=== PATIENT | female | born 1930 | race Caucasian/White ===

== ENCOUNTER 2020-01-14 22:28 | Emergency (ER) | payer MEDICARE, OTHER ==
[~2020-01-14] VITALS: Ht 162.6 cm; Wt 79.9 kg
[2020-01-14] MEDS ORDERED: IOHEXOL 300 MG/ML 75 ML VIAL. IV ONE (23:45)
[2020-01-14] MEDS ORDERED: CONTRAST GIVEN. MC PRN (23:45)
[2020-01-14] MEDS ORDERED: IOHEXOL 240 MG/ML 50ML VIAL. PO ONE (23:45)
[2020-01-14 23:54] LABS: BASO % 0 % (0-3); EOS # 0.3 x10^3/uL (0.0-0.7); EOS % 3 % (0-3); HEMATOCRIT 31.2 % (36.0-47.0); HEMOGLOBIN 10.1 g/dL (12.0-15.5); LYMPH # 2.1 x10^3/uL (1.0-4.8); LYMPH % 23 % (24-48); MEAN CORPUSCULAR HEMOGLOBIN 30 pg (25-35); MEAN CORPUSCULAR HGB CONC 32 g/dL (31-37); MEAN CORPUSCULAR VOLUME 91 fL (79-100); MONO # 1.2 x10^3/uL (0.0-1.1); MONO % 13 % (0-9); NEUT # 5.7 x10^3uL (1.8-7.7); NEUT % 61 % (31-73); PLATELET COUNT 256 x10^3/uL (140-400); RED BLOOD COUNT 3.41 x10^6/uL (3.50-5.40); RED CELL DISTRIBUTION WIDTH 14.4 % (11.5-14.5); WHITE BLOOD COUNT 9.3 x10^3/uL (4.0-11.0)
[2020-01-15 00:01] LABS: CALCIUM 8.9 mg/dL (8.5-10.1); CREATININE 1.6 mg/dL (0.6-1.0); GFR 30.4; POTASSIUM 3.5 mmol/L (3.5-5.1)
[2020-01-15 00:08] LABS: ALBUMIN 3.1 g/dL (3.4-5.0); ALBUMIN/GLOBULIN RATIO 0.7 (1.0-1.7); TOTAL BILIRUBIN 0.4 mg/dL (0.2-1.0); TOTAL PROTEIN 7.5 g/dL (6.4-8.2)
--- NOTE | 2020-01-15 02:13 | RAD ---
INDICATION: Reason: abd pain, diarrhea, OMNI 240, 30ml / Spl. Instructions: / History: . COMPARISON: None. TECHNIQUE: Axial CT images obtained through the abdomen and pelvis with contrast. One or more of the following individualized dose reduction techniques were utilized for this examination: 1. Automated exposure control; 2. Adjustment of the mA and/or kV according to patient size; 3. Use of iterative reconstruction technique. FINDINGS: Severe calcific atherosclerosis. Surgical clips in the gallbladder fossa. No perihepatic hemorrhage. No definite peripancreatic fluid collection. Spleen unremarkable. Mild thickening of the adrenal glands. No left-sided hydronephrosis. Urinary bladder is partially distended. There is some mild prominence the wall and indistinctness of adjacent fat. Mildly prominent right extrarenal pelvis. Wall thickening of the sigmoid colon with adjacent edema to the fat with diverticulosis. Small fat-containing umbilical hernia. 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 Osseous demineralization. IMPRESSION: * Wall thickening of the sigmoid colon with adjacent edema to the fat which can be seen with sigmoid diverticulitis. * There is some wall thickening of bladder. Would correlate with symptoms since a secondary cystitis could be present if the patient is having urinary tract symptoms. 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
[2020-01-15] MEDS ORDERED: AMOX1TAB61 PO (02:26)
--- NOTE | 2020-01-15 02:26 | PHYS DOC ---
Past History Past Medical History: Diabetes, Hypertension Past Surgical History: No Surgical History Alcohol Use: None Adult General Chief Complaint Chief Complaint: DIARRHEA HPI HPI Patient is an 89-year-old female presents to the emergency room complaining of abdominal cramping and diarrhea that started yesterday. She states she is having multiple episodes of diarrhea a day. She states it is watery in nature. She is never had anything like this before. She does not have any significant abdominal pain. She is not had any kind of fever. She denies any dizziness or difficulty walking. She would like to go home tonight. Her family made her come in to get checked out as her diarrhea is not controlled. Review of Systems Review of Systems General: Denies fever, chills, sweats, fatigue Eyes: Denies drainage, blurred vision, eye redness HENT: Denies rhinorrhea, sore throat, earache Respiratory: Denies cough, shortness of breath, wheezing Cardiac: Denies edema, palpitations, chest pain GI: Denies abdominal pain, Nausea, vomiting reports diarrhea MSK: Denies back pain, neck pain Skin: Denies rash, jaundice Neuro: Denies headache, dizziness Psychiatric: Denies SI/HI Current Medications Current Medications Current Medications Medications (Trade) Dose Ordered Sig/Candelario Start Time Stop Time Status Last Admin Dose Admin Info (Do NOT chart on this entry -- for MONITORING) 1 each PRN DAILY PRN 01/14/20 23:45 01/16/20 23:44 Iohexol (Omnipaque 240 Mg/ml) 30 ml 1X ONCE 01/14/20 23:45 01/14/20 23:46 DC 01/15/20 01:02 30 ML Iohexol (Omnipaque 300 Mg/ml) 75 ml 1X ONCE 01/14/20 23:45 01/14/20 23:46 DC Allergies Allergies Allergies Coded Allergies Type Severity Reaction Last Updated Verified No Known Drug Allergies 01/14/20 No Physical Exam Physical Exam General: Awake, alert, NAD. Well Nourished, well hydrated. Cooperative HEENT: Atraumatic, EOMI, PERRL, airway patent, moist oral mucosa Neck: Supple, trachea midline Respiratory: CTA bilaterally, normal effort, no wheezing/crackles CV: RRR, no murmur, cap refill <2 GI: Soft, nondistended, nontender, no masses MSK: No obvious deformities Skin: Warm, dry, intact Neuro: A&O x3, speech NL, sensory and motor grossly intact, no focal deficits Psych: Normal affect, normal mood, not suicidal or homicidal Current Patient Data Vital Signs Vital Signs Date Time Temp Pulse Resp B/P (MAP) Pulse Ox O2 Delivery O2 Flow Rate FiO2 01/14/20 22:28 98.7 86 18 144/81 (102) 100 Room Air Lab Results Laboratory Tests Test 01/14/20 23:30 White Blood Count 9.3 x10^3/uL (4.0-11.0) Red Blood Count 3.41 x10^6/uL (3.50-5.40) L Hemoglobin 10.1 g/dL (12.0-15.5) L Hematocrit 31.2 % (36.0-47.0) L Mean Corpuscular Volume 91 fL (79-100) Mean Corpuscular Hemoglobin 30 pg (25-35) Mean Corpuscular Hemoglobin Concent 32 g/dL (31-37) Red Cell Distribution Width 14.4 % (11.5-14.5) Platelet Count 256 x10^3/uL (140-400) Neutrophils (%) (Auto) 61 % (31-73) Lymphocytes (%) (Auto) 23 % (24-48) L Monocytes (%) (Auto) 13 % (0-9) H Eosinophils (%) (Auto) 3 % (0-3) Basophils (%) (Auto) 0 % (0-3) Neutrophils # (Auto) 5.7 x10^3uL (1.8-7.7) Lymphocytes # (Auto) 2.1 x10^3/uL (1.0-4.8) Monocytes # (Auto) 1.2 x10^3/uL (0.0-1.1) H Eosinophils # (Auto) 0.3 x10^3/uL (0.0-0.7) Basophils # (Auto) 0.0 x10^3/uL (0.0-0.2) Sodium Level 137 mmol/L (136-145) Potassium Level 3.5 mmol/L (3.5-5.1) Chloride Level 102 mmol/L (98-107) Carbon Dioxide Level 24 mmol/L (21-32) Anion Gap 11 (6-14) Blood Urea Nitrogen 16 mg/dL (7-20) Creatinine 1.6 mg/dL (0.6-1.0) H Estimated GFR (Cockcroft-Gault) 30.4 BUN/Creatinine Ratio 10 (6-20) Glucose Level 160 mg/dL (70-99) H Calcium Level 8.9 mg/dL (8.5-10.1) Total Bilirubin 0.4 mg/dL (0.2-1.0) Aspartate Amino Transferase (AST) 11 U/L (15-37) L Alanine Aminotransferase (ALT) 15 U/L (14-59) Alkaline Phosphatase 81 U/L (46-116) Total Protein 7.5 g/dL (6.4-8.2) Albumin 3.1 g/dL (3.4-5.0) L Albumin/Globulin Ratio 0.7 (1.0-1.7) L EKG EKG [] Radiology/Procedures Radiology/Procedures [] Heart Score Risk Factors: Risk Factors: DM, Current or recent (<one month) smoker, HTN, HLP, family history of CAD, obesity. Risk Scores: Risk Factors: DM, Current or recent (<one month) smoker, HTN, HLP, family history of CAD, obesity. Course & Med Decision Making Course & Med Decision Making Pertinent Labs and Imaging studies reviewed. (See chart for details) Patient is a 89 year-old female who presents to the Emergency Room complaining of abdominal cramping and diarrhea. On exam, patient is well-appearing. Due to patients history, age, and exam work up will need to be done to evaluate for intra-abdominal pathology. Work up ordered includes CBC, CMP, lipase, UA, CT abdomen and pelvis. Patient's pain does not epigastric and a cardiac evaluation will not be needed for atypical pain. Ddx includes colitis, diverticulitis, gastroenteritis, appendicitis. Work up was reviewed and patient has colitis. She will be treated with antibiotics. She would like to go home. We discussed that if her symptoms do not improve or she has any lightheadedness she should return.. Patient's test results and vitals while in the ED were fully reviewed and discussed with the patient. Patient is stable and at this time does not need admission to the hospital. We have discussed strict return precautions and the importance of following up with their Primary Care Physician. Patient stated understanding and was given an opportunity to ask any questions. Patient is in agreement with plan. Dragon Disclaimer Dragon Disclaimer This electronic medical record was generated, in whole or in part, using a voice recognition dictation system. Departure Departure: Impression: Primary Impression: Colitis Disposition: 01 DC HOME SELF CARE/HOMELESS Condition: STABLE Referrals: PCP,UNKNOWN (PCP) Patient Instructions: Colitis Scripts Amoxicillin/Potassium Clav (AUGMENTIN 875-125 TABLET) 1 Each Tablet 1 TAB PO BID for diverticulitis for 10 Days, #20 TAB 0 Refills Prov: MIKE CHAIREZ MD 01/15/20 MIKE CHAIREZ MD Jan 15, 2020 02:26
[2020-01-15 02:30] VITALS: BP 146/84
[2020-01-15] MEDS ORDERED: AMOXICILLIN/K CLAV 875/125MG TABLET. PO ONE (03:00)
== END 2020-01-15 02:40 | disposition home or self-care (01) ==
LOC: ER 22:28
DX: K52.9 Noninfective gastroenteritis and colitis, unspecified (principal); E11.9 Type 2 diabetes mellitus without complications; I10 Essential (primary) hypertension
CPT/HCPCS: 36415; 74176; 80053; 85025; 99285; Q9966

== ENCOUNTER 2020-09-22 14:25 | Emergency (ER) | payer MEDICARE ==
[~2020-09-22] VITALS: Ht 162.6 cm; Wt 75.4 kg
[~2020-09-22 14:25] MED LIST: AMOX1TAB61 PO
--- NOTE | 2020-09-22 15:18 | PHYS DOC ---
Past History Past Medical History: Diabetes, Hypertension Past Surgical History: No Surgical History Alcohol Use: None General Adult EDM: Chief Complaint: WEAKNESS/GENERALIZED HPI: HPI: 89-year-old female presents with cough and increased fatigue. She is accompanied by family. Family tells me that the patient has been a lot more sleepy lately and having a very difficult time staying awake. Her memory is gotten little worse last few days. Most of the symptoms have gotten worse since she started to have a cough. She is had a cough for about 1 week. The cough sounds wet, but she is unable to cough anything up. They have been trying several [id number] medications without improvement. No fever at home. The patient is fully vaccinated against COVID-19. Review of Systems: Review of Systems: Constitutional: Denies fever or chills. Fatigue Eyes: Denies change in visual acuity HENT: Denies nasal congestion or sore throat Respiratory: Cough without shortness of breath Cardiovascular: Denies chest pain or edema GI: Denies abdominal pain, nausea, vomiting, bloody stools or diarrhea : Denies dysuria Musculoskeletal: Denies back pain or joint pain Integument: Denies rash Neurologic: Denies headache, focal weakness or sensory changes Endocrine: Denies polyuria or polydipsia Lymphatic: Denies swollen glands Psychiatric: Denies depression or anxiety Allergies: Allergies: Allergies Coded Allergies Type Severity Reaction Last Updated Verified No Known Drug Allergies 01/14/20 No Physical Exam: PE: Constitutional: Well developed, well nourished, no acute distress, non-toxic appearance. [] HENT: Normocephalic, atraumatic, bilateral external ears normal, oropharynx moist, no oral exudates, nose normal. [] Eyes: PERRLA, EOMI, conjunctiva normal, no discharge. [] Neck: Normal range of motion, no tenderness, supple, no stridor. [] Cardiovascular: Heart rate regular rhythm, no murmur [] Lungs & Thorax: Cough. Bilateral breath sounds diminished but clear to auscultation [] Abdomen: Bowel sounds normal, soft, no tenderness, no masses, no pulsatile masses. [] Skin: Warm, dry, no erythema, no rash. [] Back: No tenderness, no CVA tenderness. [] Extremities: No tenderness, no cyanosis, no clubbing, ROM intact, no edema. [] Neurologic: Alert and oriented X 3, normal motor function, normal sensory function, no focal deficits noted. [] Psychologic: Affect normal, judgement normal, mood normal. [] Current Patient Data: Vital Signs: Vital Signs Date Time Temp Pulse Resp B/P (MAP) Pulse Ox O2 Delivery O2 Flow Rate FiO2 09/22/20 14:26 97.2 85 16 146/84 96 Room Air EKG: EKG: Sinus rhythm, rate 82, leftward axis, no ST elevation or depression. [] Radiology/Procedures: Radiology/Procedures: [] Impressions: AP chest. HISTORY: Weakness AP view was taken of the chest. There is no pneumothorax or pleural effusion. Heart is normal in size without heart failure. Aorta is mildly tortuous. There is hypertrophic change in the thoracic spine. IMPRESSION: 1. No acute infiltrates. Electronically signed by: Rivera Sommers MD (09/22/2020 4:07 PM) [facility] DICTATED AND SIGNED BY: RIVERA SOMMERS MD DATE: 09/22/20 1606 CC: ROSAURA CHUN DO; PCP,UNKNOWN ~MTH0 0 Heart Score: C/O Chest Pain: N/A Risk Factors: Risk Factors: DM, Current or recent (<one month) smoker, HTN, HLP, family history of CAD, obesity. Risk Scores: Score 0 - 3: 2.5% MACE over next 6 weeks - Discharge Home Score 4 - 6: 20.3% MACE over next 6 weeks - Admit for Clinical Observation Score 7 - 10: 72.7% MACE over next 6 weeks - Early Invasive Strategies Course & Med Decision Making: Course & Med Decision Making Pertinent Labs and Imaging studies reviewed. (See chart for details) The patient's labs are unremarkable except for mild anemia and slightly elevated creatinine. The anemia is similar to previous labs. Chest x-ray is negative for acute findings. Her urinalysis is positive for infection. I will treat her with a gram of Rocephin IV and discharge her with Keflex for 3 days. She is stable for discharge at this time. [] Dragon Disclaimer: Dragon Disclaimer: This electronic medical record was generated, in whole or in part, using a voice recognition dictation system. Departure Departure: Impression: Primary Impression: UTI (urinary tract infection) Qualified Codes: N30.01 - Acute cystitis with hematuria Disposition: HOME / SELF CARE / HOMELESS Condition: STABLE Referrals: PCP,UNKNOWN (PCP) Patient Instructions: Urinary Tract Infection, Btgz-[id number] Scripts Cephalexin (CEPHALEXIN) 500 Mg Tablet 1 TAB PO TID for UTI for 3 Days, #9 TAB Prov: ROSAURA CHUN DO 09/22/20 ROSAURA CHUN DO Sep 22, 2020 15:18
[2020-09-22 15:33] LABS: BASO % 1 % (0-3); EOS # 0.1 x10^3/uL (0.0-0.7); EOS % 1 % (0-3); HEMATOCRIT 31.2 % (36.0-47.0); HEMOGLOBIN 10.3 g/dL (12.0-15.5); LYMPH % 29 % (24-48); MEAN CORPUSCULAR HEMOGLOBIN 30 pg (25-35); MEAN CORPUSCULAR HGB CONC 33 g/dL (31-37); MEAN CORPUSCULAR VOLUME 90 fL (79-100); MONO # 0.7 x10^3/uL (0.0-1.1); MONO % 10 % (0-9); NEUT % 59 % (31-73); PLATELET COUNT 253 x10^3/uL (140-400); RED BLOOD COUNT 3.46 x10^6/uL (3.50-5.40); RED CELL DISTRIBUTION WIDTH 14.4 % (11.5-14.5); WHITE BLOOD COUNT 6.7 x10^3/uL (4.0-11.0)
[2020-09-22 15:42] LABS: CALCIUM 8.8 mg/dL (8.5-10.1); CREATININE 1.3 mg/dL (0.6-1.0); GFR 38.6
[2020-09-22 15:48] LABS: ALBUMIN 3.2 g/dL (3.4-5.0); ALBUMIN/GLOBULIN RATIO 0.7 (1.0-1.7); TOTAL BILIRUBIN 0.4 mg/dL (0.2-1.0); TOTAL PROTEIN 7.5 g/dL (6.4-8.2)
--- NOTE | 2020-09-22 16:09 | RAD ---
AP chest. HISTORY: Weakness AP view was taken of the chest. There is no pneumothorax or pleural effusion. Heart is normal in size without heart failure. Aorta is mildly tortuous. There is hypertrophic change in the thoracic spine. IMPRESSION: 1. No acute infiltrates. Electronically signed by: Max Jimenez MD (09/22/2020 4:07 PM) [facility]
[2020-09-22 17:28] LABS: BILIRUBIN,URINE NEG (NEG); CLARITY,URINE HAZY; COLOR,URINE YELLOW; GLUCOSE,URINE NEG (NEG); NITRITE,URINE POS (NEG); UROBILINOGEN,URINE 0.2 mg/dL (0.2 mg/dL)
[2020-09-22 17:35] LABS: RBC,URINE 0 /HPF (0-2); WBC,URINE >40 /HPF (0-4)
[2020-09-22 17:36] LABS: AMORPHOUS SEDIMENT,UR PRESENT /HPF; BACTERIA,URINE MANY /HPF (0-FEW); SQUAMOUS EPITHELIAL CELL,UR FEW /LPF
--- NOTE | 2020-09-22 17:51 | RAD ---
EXAM: CT head without contrast INDICATION: Weakness COMPARISON: None TECHNIQUE: Axial CT imaging through the head without intravenous contrast. One or more of the following individualized dose reduction techniques were utilized for this examinat ion: 1. Automated exposure control 2. Adjustment of the mA and/or kV according to patient size 3. Use of iterative reconstruction technique. FINDINGS: The ventricles are moderately enlarged, slightly out of proportion to the sulci. There is severe reji ventricular and deep white matter hypoattenuation. No intracranial hemorrhage, acute infarct, or mass lesion. The calvarium is intact. Moderate opacification of the ethmoid air cells and mastoid air gelacio ls. Globes and orbits are intact. IMPRESSION: 1. Moderately enlarged ventricles, slightly out of proportion to sulci. This is most due to age-relat ed volume loss although could also be seen with normal pressure hydrocephalus. 2. 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 Electronically signed by: Beatris Nascimento MD (09/22/2020 5:49 PM) [id number]
[2020-09-22] MEDS ORDERED: CEPH500T PO (17:59)
[2020-09-22] MEDS ORDERED: cefTRIAXone SODIUM 1 GM VIAL ONE (18:17)
[2020-09-22] MEDS ORDERED: IV NORMAL SALINE 50ML 50 ML ONE (18:17)
[2020-09-22 18:30] VITALS: BP 146/82
--- NOTE | 2020-09-23 06:32 | EKG ---
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 : 1930 Requested By: ROSAURA CHUN Order Number: [id number] Reading MD: Refugio Sweeney Measurements Intervals [place] Rate: 82 P: 90 WA: 186 QRS: -21 QRSD: 98 T: 47 QT: 400 QTc: 471 Interpretive Statements SINUS ARRHYTHMIA LEFTWARD AXIS Electronically Signed On 09-24-2020 11:57:00 CDT by Refugio Sweeney
== END 2020-09-22 19:05 | disposition home or self-care (01) ==
LOC: ER 14:25
DX: N30.01 Acute cystitis with hematuria (principal); E11.9 Type 2 diabetes mellitus without complications; I10 Essential (primary) hypertension
CPT/HCPCS: 36415; 70450; 71045; 80053; 81001; 84484; 85025; 87086; 93005; 96365; 99285; J0696; P9612